=== PATIENT | male | born 1965 | race African-American/Black ===

== ENCOUNTER 2018-04-02 15:48 | Inpatient (IN) | payer MEDICAID ==
[~2018-04-02] VITALS: Ht 175.3 cm; Wt 88.6 kg
--- NOTE | ~2018-04-02 | EC ---
PATIENT:ABELARDO PURDY DATE OF SERVICE: 04/02/18 SEX: M MEDICAL RECORD: [id number] DATE OF : 63 LOCATION:D.M2 D.212 AGE OF PATIENT: 53 ADMISSION DATE: 04/02/18 REFERRING PHYSICIAN: INTERPRETING PHYSICIAN: LUZ AVALOS MD ECHOCARDIOGRAM REPORT ECHO CHARGES 4 ECHO COMPLETE Date: 04/04/18 CLINICAL DIAGNOSIS: RECENT WY ECHOCARDIOGRAPHIC MEASUREMENTS (adult normal given) AC root (d.<3.7cm) 3.6 cm LV Septum d (<1.2 cm> 0.9 cm Valve Excursion 1.2 cm LV Septum (systole) 1.3 cm Left Atria (s.<4.0cm> 2.6 cm LVPW d(<1.2cm) 1.0 cm RV (d.<2.3cm) 2.0 cm LVPW (sytole) 1.1 cm LV diastole(<5.6CM) 5.3 cm MV E-F(>70mm/sec) cm LV systole 4.6 cm LVOT Diameter 1.9 cm MV exc.(>10mm) cm Est.ejection fraction (50-75%) % DOPPLER: LVIT cm/sec A 86 cm/sec E 44 cm/sec LA cm/sec RVSP 26.8 mmHg LVOT 104 cm/sec AOP1/2T m/s Asc. Ao 123 cm/sec RVOT 71 cm/sec RA cm/sec PA 92 cm/sec AV Gradient Peak 6.1 mmHg AV Mean 3.4 mmHg AV Area 2.8 cm MV Gradient Peak 3.6 mmHg MV Mean 1.6 mmHg MV Area cm COMMENTS: Batch Roller Operator: Tomeka LOZADA Coating Line Worker: 3 Dr. Gallardo TAPE# PACS Pericardial Effusion N DATE OF SERVICE: Adequate 2-D echo, color flow and spectral Doppler, and M-mode. No LVH. LV internal dimensions are normal. There is hypokinesis of the mid anterior wall down to the apex with true apical akinesis. Overall LV function is reduced at 35% to 40%. Aortic valve sclerosis without stenosis by Doppler interrogation. Left atrium is normal. Mitral valve shows no prolapse. Mild MR. Right-sided chambers are grossly normal. Trace TR. ECHOCARDIOGRAM REPORT [id number] ABELARDO PURDY TRANSINT:[id number] Voice Confirmation ID: [id number] DOCUMENT ID: [id number] LUZ AVALOS MD at 1546 CC: [id number] DICTATION DATE: 04/04/18 1359 HOUSETRAILER SERVICER: 04/04/18 1617 ADM IN [facility] [address] [id number]
--- NOTE | ~2018-04-02 | MORECARE ---
CASE MANAGEMENT DISCHARGE SUMMARY PATIENT: ABELARDO PURDY UNIT: [id number] ADM DATE: 04/02/18 AGE: 53 : 63 SEX: M ROOM/BED: D.2301 AUTHOR: STEPHENDOC PHYSICIAN: REFERRING PHYSICIAN: LUZ AVALOS MD DATE OF SERVICE: 04/04/18 Discharge Plan Patient Name: ABELARDO PURDY Facility: [facility]:[place] : 1965 Planned Disposition: Home Anticipated Discharge Date: Discharge Date: Expected LOS: Initial Reviewer: [email or web address] Initial Review Date: 04/04/2018 Generated: 04/04/18 4:28 pm DCP- Discharge Planning Updated by [email or web address]: Haley Hendricks on 04/04/18 2:[address] Patient Name: ABELARDO PURDY Admission Status: ER Accout number: [id number] Admission Date: 04-02-2018 : 1965 Admission Diagnosis: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 PATIENT DENIES ANY DISCHARGE NEEDS. FAMILY IN ROOM REQUESTED US TO HELP HIM GET ON DISABILITY. CM EXPLAINED THAT WE DIDN'T DO THAT. CM CALLED AND SPOKE WITH [employer] (GUTIERREZ). SHE STATED THAT I COULD GIVE HER PHONE NUMBER TO THE PATIENT AND WOULD ASSIST BY ANSWERING ANY QUESTIONS NEEDED. CM GAVE GUTIERREZ CONTACT NUMBER [phone] TO PATIENT. CM WILL CONTINUE TO FOLLOW AND ASSIST WITH DISCHARGE PLANNING / NEEDS. Clinical Analyst: Haley Hendricks DCPIA - Discharge Planning Initial Assessment Updated by [email or web address]: Haley Hendricks on 04/04/18 3:14 pm * Is the patient Alert and Oriented? Yes * How many steps to enter\exit or inside your home? 2-3 * PCP NO PCP * Pharmacy NO PHARMACY PLANS TO USE [facility] IN [place] * Preadmission Environment Home Alone * ADLs Independent * Equipment Cane * Other Equipment SHOWER CHAIR * List name and contact numbers for known caregivers / representatives who currently or will assist patient after discharge: [facility] [phone] * Additional services required to return to the preadmission environment? No * Can the patient safely return to the preadmission environment? Yes * Has this patient been hospitalized within the prior 30 days at any hospital? No Last DP export: 04/04/18 2:18 Patient Name: ABELARDO PURDY Page [id number] at 1528 All edits/amendments must be made on the electronic document DICTATION DATE: 04/04/181526 HAND PAINTER: HUMBERTO 04/04/181526 RPT#: [id number] DC DATE: STATUS: ADM IN [facility] [address] [place] [address] END OF REPORT
--- NOTE | ~2018-04-02 | MORECARE ---
CASE MANAGEMENT DISCHARGE SUMMARY PATIENT: ABELARDO PURDY UNIT: [id number] ADM DATE: 04/02/18 AGE: 53 : 63 SEX: M ROOM/BED: D.2301 AUTHOR: JIMENA MITCHELL PHYSICIAN: REFERRING PHYSICIAN: LUZ AVALOS MD DATE OF SERVICE: 04/04/18 Discharge Plan Patient Name: ABELARDO PURDY [facility] : 1965 Planned Disposition: Home Anticipated Discharge Date: Discharge Date: Expected LOS: Initial Reviewer: [email or web address] Initial Review Date: 04/04/2018 Generated: 04/04/18 4:18 pm DCPIA - Discharge Planning Initial Assessment Updated by [email or web address]: Haley Hendricks on 04/04/18 3:14 pm * Is the patient Alert and Oriented? Yes * How many steps to enter\exit or inside your home? 2-3 * PCP NO PCP * Pharmacy NO PHARMACY PLANS TO USE [facility] IN [place] * Preadmission Environment Home Alone * ADLs Independent * Equipment Cane * Other Equipment SHOWER CHAIR * List name and contact numbers for known caregivers / representatives who currently or will assist patient after discharge: [facility] [phone] * Additional services required to return to the preadmission environment? No * Can the patient safely return to the preadmission environment? Yes * Has this patient been hospitalized within the prior 30 days at any hospital? No Patient Name: ABELARDO PURDY Page [id number] at 1518 All edits/amendments must be made on the electronic document DICTATION DATE: 04/04/18 1517 BRIM STITCHER: HUMBERTO 04/04/18 1517 RPT#: [id number] DC DATE: STATUS: ADM IN [facility] [address] [place] [address] END OF REPORT
--- NOTE | ~2018-04-02 | OP ---
PATIENT NAME: ABELARDO PURDY MEDICAL RECORD: [id number] :63 LOCATION:D.M2 D.2121 ADMISSION DATE:04/02/18 SURGEON: LUZ AVALOS MD DATE OF OPERATION: 04/02/2018 PROCEDURE: Left heart catheterization, selective coronary angiography, plus aortography, left femoral artery approach. CATHETERS: A 5/4 left and right Mike, 5/4 pig. The procedure was well tolerated. PTCA to totally occluded LAD. FINDINGS: Left ventriculography in 30-degree HARGROVE view shows a marked hypokinesis from the mid anterior wall down to the anterior apex true apical region. Overall, LV function reduced, 20% to 25%. Aortic root: Aortic root injection was performed. This showed a normal size aortic root. No evidence of dissection. CORONARY ANATOMY: LEFT MAIN: Left main is free of disease. LAD: Fills to about its mid third and then has MAYO 1 flow distally. CIRCUMFLEX: Circumflex free of disease. RIGHT CORONARY ARTERY: Dominant artery free of disease. DESCRIPTION OF PROCEDURE: Using a JL4 guiding catheter, a Whisper wire was placed easily across the area of occlusion LAD. Multiple balloon inflations were placed up and down the vessel with a 2.5 and 3.0, 20 mm Tom Green balloon. This showed no wasting. Intraballoon injection contrast shows no evidence of dissection. The patient was given Integrilin IC nitroglycerin and IC Cardene. It was felt at this point, this is more of no reflow phenomena with a marked thrombus, particularly in view of symptomatic beginning approximately 2 days prior to admission. He is placed on Integrilin overnight. Hopefully, it will washout of residual thrombus, beta blockade, statin, HUGH inhibitor will be started in the near future. TRANSINT:[id number] Voice Confirmation ID: [id number] DOCUMENT ID: [id number] LUZ AVALOS MD at 1546 CC: [id number] DICTATION DATE: 04/02/181730 SECTIONIZER: 04/02/18 2337 ADM IN [facility] [address] [place] [address]
--- NOTE | ~2018-04-02 | HEMODYNAMI ---
PATIENT:ABELARDO PURDY MEDICAL RECORD: [id number] : 63 LOCATION:[facility] ADMISSION DATE: 04/02/18 Generatedon:04/02/201817:26 Patient name: ABELARDO PURDY Patient #: [id number] SSN: : 1965 Date of study: 04/02/2018 Page: Of Hemodynamic Procedure Report Patient Data Patient Demographics Procedure consent was obtained First Name: ABELARDO Gender: Male Last Name: GURWINDER : 1965 Patient #: [id number] Age: 53 year(s) Race: Black Additional ID: [id number] Contact details [address]: [address] [place] [address] State: [place] City: [place] Zip code: [address] Admission Admission Data Admission Date: 04/02/2018 Admission Time: 15:48 Procedure Procedure Types Cath Procedure Diagnostic Procedure LHC LHC w/Coronaries PCI Procedure PTCA PTCA Initial Procedure Description Procedure Date Procedure Date: 04/02/2018 Procedure Start Time: 16:08 Procedure End Time: 17:24 Procedure Staff Name Function Tigre Whitley MD Performing Physician Laura Olmstead RT Monitor Zak Norris RT Monitor Peyton Alcazar RT Scrub Martha Cueva RN Nurse Procedure Data Cath Procedure Fluoroscopy Diagnostic fluoroscopy Total fluoroscopy Time: 15 time: 15 min min Diagnostic fluoroscopy Total fluoroscopy dose: dose: 1749 mGy 1749 mGy Contrast Material Contrast Material Type Amount (ml) Isovue 300 185 Entry Location Entry Primary Successful Side Size Upsize Upsize Entry Closure Thornton ccessful Closure Location (Fr) 1 (Fr) 2 (Fr) Remarks Device Remarks Femoral Right 6 Fr Mechanical artery Short Compression Femoral Left 6 Fr Exoseal vein Short Femoral Right 6 Fr Exoseal artery Short Estimated blood loss: 10 ml Diagnostic catheters Device Type Used For End Catheter Placement MULTIPACK 3DRC 5Fr Procedure catheter MULTIPACK 3DRC 5Fr Procedure catheter MULTIPACK Pigtail 5 Fr Procedure catheter Procedure Complications No complications Procedure Medications Medication Administration Route Dosage Oxygen etCO2 Nasal cannula 2 l/min Heparin Flush Bag added to field 2 bags (1000units/500ml NS) 0.9% NaCl I.V. 100 ml/hr Fentanyl I.V. 100 mcg Versed I.V. 2 mg Versed I.V. 1 mg Fentanyl I.V. 100 mcg Versed I.V. 1 mg Fentanyl I.V. 50 mcg Lopressor I.V. 2.5 mg Heparin Bolus I.V. 5000 units Integrilin (Bolus I.V. 7.9 ml 2mg/ml) Nitroglycerin IC/IA I.C. 150 mcg Cardene I.C. 250 mcg Integrilin Drip I.V. drip 7 ml/hr (75mg/100ml) Plavix P.O. 600 mg Fentanyl I.V. 25 mcg Hemodynamics Rest Heart Rate: 86 (bpm) Pressure Samples Time Site Value (mmHg) Purpose Heart Use Rate(bpm) 16:33 LV 167/30,39 Snapshot 116 16:34 AO 165/102(130) Pullback 112 16:34 LV 168/-2,40 Pullback 112 16:48 AO 97/70(83) Snapshot 84 Gradients Valve Time Site 1 Site 2 Mean SEP/DFP Peak To Heart Use (mmHg) (sec/min) Peak Rate (mmHg) (bpm) Aortic 16:34 LV AO 3 112 168/-2,40 165/102(130) Calculations Valve P-P Mean Valve Index Valve Source Name Gradient Area Flow (cm2) Aortic 3 3 Snapshots Pre Cath Intra NCS Post Cath Vital Signs Time Heart Resp SPO2 etCO2 NIBP (mmHg) Rhythm Pain Sedation Rate (ipm) (%) (mmHg) Status Level (bpm) 16:05:06 84 24 98 25.4 147/109(134) NSR 0 (11) 10(A) , No pain 16:09:16 91 16 96 29.7 138/100(123) NSR 0 (11) 10(A) , No pain 16:13:28 89 12 97 11.9 135/95(127) NSR 0 (11) 10(A) , No pain 16:17:40 97 19 95 34.4 143/103(114) NSR 0 (11) 10(A) , No pain 16:21:48 94 11 95 13.4 143/100(126) NSR 0 (11) 10(A) , No pain 16:26:00 109 26 96 16 142/114(126) NSR 0 (11) 10(A) , No pain 16:30:14 105 15 95 30 152/102(127) NSR 0 (11) 9(A) , No pain 16:35:37 107 14 97 32 165/98(142) NSR 0 (11) 9(A) , No pain 16:39:55 90 13 96 42.6 151/93(110) NSR 0 (11) 9(A) , No pain 16:44:07 86 14 96 33 116/78(98) NSR 0 (11) 9(A) , No pain 16:48:17 84 13 97 29 117/76(99) NSR 0 (11) 9(A) , No pain 16:52:25 87 13 96 29.9 124/81(106) NSR 0 (11) 9(A) , No pain 16:56:33 92 12 97 26.1 128/90(112) NSR 0 (11) 9(A) , No pain 17:00:43 89 13 97 26.1 137/89(113) NSR 0 (11) 9(A) , No pain 17:04:58 88 14 96 27.6 134/85(106) NSR 0 (11) 9(A) , No pain 17:09:10 92 13 95 33.6 122/83(96) NSR 0 (11) 9(A) , No pain 17:13:18 90 14 96 32.8 125/86(111) NSR 0 (11) 10(A) , No pain 17:17:39 104 14 96 20.2 106/76(83) NSR 0 (11) 10(A) , No pain 17:22:27 90 14 31.4 142/96(119) NSR 0 (11) 10(A) , No pain Medications Time Medication Route Dose Verified Delivered Reason Notes Effectiveness by by 16:01:15 Oxygen etCO2 2 Tigre Martha Per physician Nasal l/min [facility] Rangel Cueva cannula RN 16:01:24 Heparin Flush added 2 Tigre Martha used for Bag to bags [facility] Rangel Cueva procedure (1000units/500ml field RN NS) 16:01:33 0.9% NaCl I.V. 100 Tigre Adanyla Per physician ml/hr [facility] Rangel Cueva MD, RN 16:06:50 Fentanyl I.V. 100 Tigre Thomas for sedation mcg [facility] Rangel Cueva MD, RN 16:06:57 Versed I.V. 2 mg Tigre De La Rosaa for sedation [facility] Rangel Cueva MD, RN 16:21:36 Versed I.V. 1 mg Tigre Adanyla for sedation [facility] Rangel Cueva MD, RN 16:21:41 Fentanyl I.V. 100 Tigre Thomas for sedation mcg [facility] Rangel Cueva MD, RN 16:29:16 Versed I.V. 1 mg Tigre De La Rosaa for sedation [facility] Rangel Cueva MD, RN 16:29:22 Fentanyl I.V. 50 Tigre Thomas for sedation mcg [facility] Rangel Cueva MD, RN 16:37:23 Lopressor I.V. 2.5 Tigre Thomas for mg [facility] Rangel Cueva hypertension MD LUO 16:39:08 Heparin Bolus I.V. 5000 Tigre Thomas for verif ied units [facility] anticoagulation with Dr. MD LUO [place] 16:39:28 Integrilin I.V. 7.9 Tigre Thomas for waste d (Bolus 2mg/ml) ml [facility] Rangel Cueva anticoagulation 2.1mL MD LUO 16:39:51 Fentanyl I.V. 25 Tigre Thomas for sedation mcg [facility] Rangel Cueva MD, RN 16:52:08 Nitroglycerin I.C. 150 Tigre Landeros for IC/IA mcg [place] [facility] Multani vasodilation MD CLARK 17:08:32 Cardene I.C. 250 Tigre Landeros for mcg [place] [facility] Multani vasodilation MD CLARK 17:08:58 Integrilin Drip I.V. 7 Tigre Thomas for (75mg/100ml) drip ml/hr AngiRangel Cueva anticoagulation MD LUO 17:17:00 Plavix P.O. 600 Tigre [address] for mg [facility] Rangel Cueva antiplatelet MD LUO therapy Procedure Log Time Note 15:45:22 Martha Cueva RN sent for patient. Start room use. 15:52:49 Informed consent obtained and on chart 15:52:52 Diagnostic Cath Status : Elective 15:53:23 Time tracking: Regular hours (M-F 7:00 - 5:00) 15:53:28 Plan of Care:Hemodynamics will remain stable., Cardiac rhythm will remain stable., Comfort level will be maintained., Respiratory function will remain adequate., Patient/ family verbilizes understanding of procedure., Procedure tolerated without complication., Recovers from procedure without complications.. 16:00:08 Patient received from ED to CCL 1 Alert and oriented. Tansferred to table in Supine position. 16:00:09 Warm blankets applied, and rigoberto hugger turned on for patient comfort. 16:00:10 Correct patient and procedure confirmed by team. 16:00:10 ECG and BP/O2 sat monitors applied to patient. 16:01:15 Oxygen 2 l/min etCO2 Nasal cannula was administered by Martha Cueva RN; Per physician; 16:01:24 Heparin Flush Bag (1000units/500ml NS) 2 bags added to field was administered by Martha Cueva RN; used for procedure; 16:01:33 0.9% NaCl 100 ml/hr I.V. was administered by Martha Cueva RN; Per physician; 16:03:46 Vital chart was started 16:04:03 Baseline sample Acquired. 16:04:10 Rhythm: w/ ST elevation 16:04:12 Full Disclosure recording started 16:04:15 H&P Date Dictated: 04/02/2018 Emergent; H&P N/A. 16:04:16 Pre-procedure instructions explained to patient. 16:04:16 Pre-op teaching completed and patient verbalized understanding. 16:04:19 Family in patients room. 16:04:21 Patient NPO since Midnight. 16:04:26 Is the patient allergic to Iodine/contrast media? No. 16:04:33 Is patient on blood thinner?No 16:04:35 Patient diabetic? No. 16:04:38 Previous problem with sedation/anesthesia? No ? 16:04:40 Snore? No 16:04:41 Sleep apnea? No 16:04:42 Deviated septum? No 16:04:43 Opens mouth fully? Yes 16:04:44 Sticks out tongue? Yes 16:04:46 Airway obstruction? No ? 16:04:49 Dentures? No ? 16:05:16 Pre procedure: right dorsailis pedis pulse 1+ Palpable, but thready & weak; easily obliterated 16:05:20 Patient pain scale 7/10 physician notified.. 16:05:53 IV patent on arrival in left forearm with 0.9% NaCl at [facility]. 16:05:56 Lab results completed and on chart. 16:05:58 Right groin area was prepped with chlora-prep and draped in sterile fashion 16:06:00 Alarms reviewed by R. N. 16:06:00 Sharps counted by scrub and verified by RCalixtoN. 16:06:01 --------ALL STOP TIME OUT------ 16:06:02 Final Timeout: patient, procedure, and site verified with staff and physician. All members of the team are in agreement. 16:06:04 Right groin site verified by team. 16:06:08 Physical assessment completed. ASA score P 3 - A patient with severe systemic disease as per Tigre Whitley MD. 16:06:11 Sedation plan: IV Moderate Sedation Medication:Versed, Fentanyl 16:06:50 Fentanyl 100 mcg I.V. was administered by Martha Cueva RN; for sedation; 16:06:57 Versed 2 mg I.V. was administered by Martha Cueva RN; for sedation; 16:06:58 Use device set Femoral Dx 16:07:13 ACIST Syringe (78796) opened to sterile field. 16:07:14 Bag Decanter (2002S) opened to sterile field. 16:07:14 Medline Cath Pack ([id number]) opened to sterile field. 16:07:15 ACIST Hand Control (01738) opened to sterile field. 16:07:16 ACIST Manifold (17227) opened to sterile field. 16:07:18 Tegaderm 4 x 4 (1626W) opened to sterile field. 16:07:20 DIAGNOSTIC WIRE .035 260cm J wire (307747) opened to sterile field. 16:07:22 DIAGNOSTIC Multipack 5Fr catheter set (GW8667) opened to sterile field. 16:07:31 SHEATH 6FR [place] (IMH073) opened to sterile field. 16:07:32 SHEATH 6FR [place] (KAU120) opened to sterile field. 16:07:59 Procedure started. 16:08:02 Local anesthetic to right femoral artery with Lidocaine 2% by Tigre Whitley MD.INITIAL ACCESS ONLY 16:08:46 Zero performed for pressure channel P1 16:09:33 A 6 Fr Short sheath was inserted into the Right Femoral artery 16:10:35 GLIDE WIRE Super Stiff Angled 260cm (EJ9098) opened to sterile field. 16:10:55 A MULTIPACK 3DRC 5Fr catheter was advanced over the wire and used for Procedure. 16:14:16 Unable to advance catheter, catheter removed. Moving to left groin. 16:14:31 Left groin prepped and draped. 16:15:04 SHEATH 6FR [place] (DXA565) opened to sterile field. 16:15:18 Local anesthetic to left femerol artery with Lidocaine 2% by Tigre Whitley MD.ADDITIONAL ACCESS 16:15:30 A 6 Fr Short sheath was inserted into the Left Femoral vein 16:21:36 Versed 1 mg I.V. was administered by Martha Cueva RN; for sedation; 16:21:41 Fentanyl 100 mcg I.V. was administered by Martha Cueva RN; for sedation; 16:24:19 MICROPUNCTURE 4FR Cook (I75142) opened to sterile field. 16:28:32 Access obtained with 4Fr micropunture. 16:28:36 A 6 Fr Short sheath was inserted into the Right Femoral artery 16:29:16 Versed 1 mg I.V. was administered by Martha Cueva RN; for sedation; 16:29:22 Fentanyl 50 mcg I.V. was administered by Martha Cueva RN; for sedation; 16:30:27 A MULTIPACK 3DRC 5Fr catheter was advanced over the wire and used for Procedure. 16:32:04 RCA angiography performed. 16:32:19 Catheter exchanged over wire. 16:33:44 A MULTIPACK Pigtail 5 Fr catheter was advanced over the wire and used for Procedure. 16:33:55 LV angiography performed. 16:34:15 LV gram done using HARGROVE 16:34:21 EF : 30 % 16:34:23 LV hemodynamics recorded. 16:34:34 Injector settings: Ml/sec: 10, Volume: 20, 16:34:38 Aortic Root visualized 16:34:41 Injector settings: Ml/sec: 15, Volume: 30, 16:35:51 Catheter exchanged over wire. 16:35:53 INFLATOR Merit BasixCompak (RW5751) opened to sterile field. 16:35:54 WHISPER 300cm guide wire ([id number]) opened to sterile field. 16:36:41 GUIDE 6FR JL 4.0 catheter (WN7ES48) opened to sterile field. 16:36:57 6 Fr JL 4 guide catheter was inserted over the wire 16:37:19 LCA angiography performed. 16:37:23 Lopressor 2.5 mg I.V. was administered by Martha Cueva RN; for hypertension; 16:39:08 Heparin Bolus 5000 units I.V. was administered by Martha Cueva RN; for anticoagulation; verified with Dr. Gallardo 16:39:28 Integrilin (Bolus 2mg/ml) 7.9 ml I.V. was administered by Martha Cueva RN; for anticoagulation; wasted 2.1mL 16:39:45 WHISPER wire advanced. 16:39:51 Fentanyl 25 mcg I.V. was administered by Martha Cueva RN; for sedation; 16:41:05 Wire advanced across lesion. 16:42:19 Inflate balloon Inflation number: 1 A EMERGE OTW 3.0 x 15 balloon ([id number]) was prepped and advanced across the Dist LAD, then inflated to 10 MAHI for 0:30 (min:sec). 16:43:29 Multiple inflations made at 10 Atms. 16:44:52 Balloon removed over the wire. 16:46:17 Inflate balloon Inflation number: 2 A EMERGE OTW 2.5 x 20 balloon ([id number]) was prepped and advanced across the Dist LAD, then inflated to 8 MAHI for 0:30 (min:sec). 16:46:56 Multiple inflations made at 8 Atms. 16:49:22 Inflation number: 3 The EMERGE OTW 2.5 x 20 balloon ([id number]) was reinflated across the Dist LAD, to 12 MAHI for 0:30 (min:sec). 16:50:27 Multiple inflations made at 12 Atms. 16:52:08 Nitroglycerin IC/IA 150 mcg I.C. was administered by Tigre Whitley MD; for vasodilation; 17:03:02 Multiple inflations made at 12 Atms. 17:07:25 Balloon removed over the wire. 17:07:26 Wire removed. 17:07:33 Guide catheter removed. 17:08:10 EXOSEAL 6Fr (EX600) opened to sterile field. 17:08:16 EXOSEAL 6Fr (EX600) opened to sterile field. 17:08:28 Sheath removed intact; hemostasis achieved with Exoseal to the Left Femoral vein. 17:08:32 Cardene 250 mcg I.C. was administered by Tigre Whitley MD; for vasodilation; 17:08:58 Integrilin Drip (75mg/100ml) 7 ml/hr I.V. drip was administered by Martha Cueva RN; for anticoagulation; 17:09:00 Sheath removed intact; hemostasis achieved with Exoseal to the Right Femoral artery. 17:09:08 Procedure ended.(Physican Out) 17:10:00 Fluoroscopy time 15.00 minutes. 17:10:06 Flurop Dose total: 1749 17:10:06 Fluoroscopy dose: 1749 mGy 17:10:10 Contrast amount:Isovue 300 185ml. 17:10:12 Sharps counted by scrub and verified by R.N. 17:10:14 Insertion/operative site no bleeding no hematoma. 17:10:19 Post-op/insertion site Left Femoral artery dressed using a 4 x 4 and Tegaderm. 17:10:36 FEMSTOP Gold (E49287) opened to sterile field. 17:11:24 Sheath removed intact; hemostasis achieved with Mechanical Compression to the Right Femoral artery. 17:11:33 Femstop placed over the right femoral artery at 150 mmHg. Hemostasis achieved. 17:11:46 Post-procedure physical assessment completed. ASA score P 3 - A patient with severe systemic disease as per Tigre Whitley MD. 17:11:49 Post procedure rhythm: unchanged. 17:11:52 Estimated blood loss: 10 ml 17:11:54 Post procedure instruction explained to patient.Patient verbalizes understanding. 17:11:55 Patient needs reinforcement of post procedure teaching. 17:12:30 Procedure type changed to Cath procedure, Diagnostic procedure, LHC, LHC w/Coronaries, PCI procedure, PTCA, PTCA Initial 17:12:38 Procedure Complication : No complications 17:17:00 Plavix 600 mg P.O. was administered by Martha Cueva RN; for antiplatelet therapy; 17:20:40 Procedure and supply charges have been captured, reviewed, submitted and are correct. 17:23:47 Vital chart was stopped 17:23:47 See physician's report for complete and final results. 17:24:07 Report given to ICU. 17:24:10 Patient transfered to ICU with Bed. 17:24:13 Procedure ended. 17:24:13 Full Disclosure recording stopped 17:24:17 End room use (Document Last) Intervention Summary Intervention Notes Time ActionType Lesion and Equipment Action# Pressure Duration Attributes Used 16:42:19 Inflate Dist LAD EMERGE OTW 1 10 00:30 balloon 3.0 x 15 balloon ([id number]) 16:46:17 Inflate Dist LAD EMERGE OTW 2 8 00:30 balloon 2.5 x 20 balloon ([id number]) 16:49:22 Reinflate Dist LAD EMERGE OTW 3 12 00:30 balloon 2.5 x 20 balloon ([id number]) Device Usage Item Name Manufacture Quantity Catalog Number Hospital Part Current [facility] Lot# / Charge Number Stock Stock Serial# Code ACIST Syringe Acist 1 47438 506655 776423 487023 20 (26921) Medical Systems Inc Bag Decanter Microtek 1 2001S 406679 07884 539611 5 (2001S) Medical Inc. Medline Cath Medline 1 [id number] 625213 05897 067600 5 Pack ([id number]) ACIST Hand Acist 1 42697 883536 108559 257263 5 Control Medical (59559) Systems Inc ACIST Acist 1 94700 649707 666244 454422 5 Manifold Medical (23023) Systems Inc Tegaderm 4 x 3M 1 1626W 991733 255960 398186 5 4 (1626W) DIAGNOSTIC [facility] Jelani 1 932690 700775 987042 777660 30 WIRE .035 260cm J wire (465606) DIAGNOSTIC Cardinal 1 UU9623 062272 42062 718109 30 Multipack 5Fr Health catheter set (UF8334) SHEATH 6FR Terumo 3 ETQ847 842290 327589 977516 40 [place] (WWP668) GLIDE WIRE Terumo 1 LW7405 188067 359256 365293 5 Super Stiff Angled 260cm (JB2829) MULTIPACK Cardinal 1 494447 5 3DRC 5Fr Health catheter MICROPUNCTURE sportif225 [facility] 1 I70478 938066 776595 726373 5 4FR Cook (H61227) MULTIPACK Cardinal 1 847709 5 Pigtail 5 Fr Health catheter INFLATOR [facility] 1 RA3150 072144 209808 036498 15 [facility] BasixCompak (WR5595) WHISPER 300cm Tamayo 1 [id number] 149874 162997 471711 5 guide wire Vascular (7429040MZ) GUIDE 6FR JL Medtronic 1 GQ6JY54 290985 89534 436621 1 4.0 catheter (XQ1DM16) EMERGE OTW [place] 1 [id number] 362446 705066 545198 5 [id number] 3.0 x 15 Scientific balloon ([id number]) EMERGE OTW [place] 1 [id number] 755301 275047 350228 5 [id number] 2.5 x 20 Scientific balloon ([id number]) EXOSEAL 6Fr Cardinal 2 EX600 998219 340236 949670 10 (EX600) [facility] St Jelani 1 N11168 829760 678806 242922 5 (Y47418) Signature Audit Byron Stage Time Signature Unsigned Intra-Procedure 04/02/2018 Zak Norris 5:26:20 PM RT(R) Signatures Monitor : Laura Olmstead RT Signature : Date : Time : Monitor : Zak Norris RT Signature : Date : Time : [address] [address]
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
[2018-04-02 17:50] VITALS: BP 145/85; BMI 26.9
[2018-04-02 19:00] VITALS: BP 115/94
[2018-04-02 20:00] VITALS: BP 117/89
[2018-04-02 21:00] VITALS: BP 124/98
[2018-04-02 22:00] VITALS: BP 133/90
[2018-04-02 23:00] VITALS: BP 121/90
[2018-04-03] VITALS (24 sets, daily range): BP systolic 97–133; BP diastolic 63–93; Ht 175.3 cm; Wt 88.6 kg
[2018-04-03 04:11] LABS: BASOPHILS 0.1 % (0-2); EOSINOPHILS 0 % (0-7); HEMOGLOBIN 14.4 g/dL (13.5-17.5); IMMATURE GRANULOCYTES 0.4 % (0-5); LYMPHOCYTES 5.3 % (15-50); MCH 22.4 pg (26.0-34.0); MCHC 32.7 g/dL (31.0-37.0); MCV 68.5 fL (80.0-100.0); MONOCYTES 5.9 % (2-11); NEUTROPHILS 88.3 % (40-80); PLATELET COUNT 160 10x3/uL (130-400); RBC 6.42 10x6/uL (4.20-6.10); RDW 17.9 % (11.5-14.5); WBC 18.3 10x3/uL (4.8-10.8)
[2018-04-03 06:48] LABS: ALBUMIN 3.3 g/dL (3.4-5.0); ANION GAP 21.7 mmol/L (8-16); BILIRUBIN - TOTAL 0.45 mg/dL (0.2-1.3); CALCIUM 9.1 mg/dL (8.5-10.1); CARBON DIOXIDE 20.6 mmol/L (21.0-32.0); CREATININE - SERUM 1.7 mg/dL (0.6-1.3); PROTEIN - SERUM 7.4 g/dL (6.4-8.2)
[2018-04-03 07:16] LABS: POTASSIUM - SERUM 6.3 mmol/L (3.5-5.1)
[2018-04-03 09:27] LABS: MAGNESIUM - SERUM 2.4 mg/dL (1.8-2.4); PHOSPHOROUS 6.8 mg/dL (2.5-4.9)
[2018-04-03 16:12] LABS: ALBUMIN 3.2 g/dL (3.4-5.0); ALKALINE PHOSPHATASE 98 U/L (46-116); ALT (SGPT) 71 U/L (10-68); BILIRUBIN - TOTAL 0.44 mg/dL (0.2-1.3); CALC OSMOLALITY 276 mosm/kg (275-300); CALCIUM 9.2 mg/dL (8.5-10.1); CARBON DIOXIDE 23.6 mmol/L (21.0-32.0); CHLORIDE - SERUM 99 mmol/L (98-107); CREATININE - SERUM 0.8 mg/dL (0.6-1.3); GLUCOSE 164 mg/dL (74-106); POTASSIUM - SERUM 5.2 mmol/L (3.5-5.1); PROTEIN - SERUM 6.8 g/dL (6.4-8.2); SODIUM 135 mmol/L (136-145); UREA NITROGEN 20 mg/dL (7-18); eGFR NON AFRICAN AMERICAN > 90 mL/min (90-120)
[2018-04-03 19:01] LABS: APPEARANCE CLEAR (CLEAR); BILIRUBIN NEGATIVE (NEGATIVE); COLOR YELLOW (YELLOW); GLUCOSE 1000 mg/dL (NEGATIVE); KETONE SMALL mg/dL (NEGATIVE); NITRITE NEGATIVE (NEGATIVE); PROTEIN NEGATIVE (NEGATIVE); SPECIFIC GRAVITY 1.015 (1.005-1.020); UROBILINOGEN NORMAL (NORMAL)
[2018-04-03 19:04] LABS: RED CELLS - URINE 0-5 /hpf (0-5)
[2018-04-03 19:05] LABS: BACTERIA FEW /hpf (NONE SEEN); CREATININE - URINE 86.4 mg/dL (30-125); GRANULAR CAST 0-5 /lpf (NONE SEEN); HYALINE CAST 0-5 /lpf (NONE SEEN); PRO/CRE RATIO URINE 0.3 mg/g; PROTEIN - URINE 25.7 mg/dL (0.0-11.9)
[2018-04-03 21:34] LABS: ALKALINE PHOSPHATASE 85 U/L (46-116); ALT (SGPT) 67 U/L (10-68); BILIRUBIN - TOTAL 0.46 mg/dL (0.2-1.3); CALC OSMOLALITY 270 mosm/kg (275-300); CALCIUM 8.8 mg/dL (8.5-10.1); CARBON DIOXIDE 27.4 mmol/L (21.0-32.0); CHLORIDE - SERUM 99 mmol/L (98-107); CREATININE - SERUM 0.9 mg/dL (0.6-1.3); GLUCOSE 91 mg/dL (74-106); MAGNESIUM - SERUM 2.1 mg/dL (1.8-2.4); POTASSIUM - SERUM 4.4 mmol/L (3.5-5.1); PROTEIN - SERUM 6.9 g/dL (6.4-8.2); SODIUM 135 mmol/L (136-145); UREA NITROGEN 16 mg/dL (7-18); eGFR NON AFRICAN AMERICAN > 90 mL/min (90-120)
[2018-04-04] VITALS (24 sets, daily range): BP systolic 86–120; BP diastolic 52–84
[2018-04-04 03:15] LABS: BASOPHILS 0 % (0-2); EOSINOPHILS 0.1 % (0-7); HEMATOCRIT 35.8 % (42.0-54.0); HEMOGLOBIN 12.2 g/dL (13.5-17.5); IMMATURE GRANULOCYTES 0.3 % (0-5); LYMPHOCYTES 13.1 % (15-50); MCH 22.1 pg (26.0-34.0); MCHC 34.1 g/dL (31.0-37.0); MONOCYTES 10.2 % (2-11); NEUTROPHILS 76.3 % (40-80); PLATELET COUNT 124 10x3/uL (130-400); RBC 5.51 10x6/uL (4.20-6.10); RDW 16.3 % (11.5-14.5); WBC 14.4 10x3/uL (4.8-10.8)
[2018-04-04 03:17] LABS: INR 1.14 (0.85-1.17); PROTIME 14.1 SECONDS (11.6-15.0)
[2018-04-04 03:19] LABS: APTT 127.6 SECONDS (22.8-39.4)
[2018-04-04 03:34] LABS: ALBUMIN 2.8 g/dL (3.4-5.0); ALKALINE PHOSPHATASE 78 U/L (46-116); ALT (SGPT) 63 U/L (10-68); BILIRUBIN - TOTAL 0.48 mg/dL (0.2-1.3); CALC OSMOLALITY 270 mosm/kg (275-300); CALCIUM 8.4 mg/dL (8.5-10.1); CARBON DIOXIDE 27.6 mmol/L (21.0-32.0); CHLORIDE - SERUM 101 mmol/L (98-107); CREATININE - SERUM 0.8 mg/dL (0.6-1.3); GLUCOSE 119 mg/dL (74-106); POTASSIUM - SERUM 3.9 mmol/L (3.5-5.1); PRO BNP 2388 pg/mL (0-125); PROTEIN - SERUM 6.7 g/dL (6.4-8.2); SODIUM 135 mmol/L (136-145); THYROID STIMULATING HORMONE 0.56 uIU/mL (0.36-3.74); UREA NITROGEN 12 mg/dL (7-18); eGFR NON AFRICAN AMERICAN > 90 mL/min (90-120)
[2018-04-05] VITALS (25 sets, daily range): BP systolic 83–141; BP diastolic 43–88
[2018-04-05 03:23] LABS: BASOPHILS 0.1 % (0-2); EOSINOPHILS 0.2 % (0-7); HEMATOCRIT 34.7 % (42.0-54.0); HEMOGLOBIN 11.5 g/dL (13.5-17.5); IMMATURE GRANULOCYTES 0.2 % (0-5); LYMPHOCYTES 18.2 % (15-50); MCH 21.9 pg (26.0-34.0); MCHC 33.1 g/dL (31.0-37.0); MONOCYTES 10.6 % (2-11); NEUTROPHILS 70.7 % (40-80); RBC 5.26 10x6/uL (4.20-6.10); RDW 16.2 % (11.5-14.5)
[2018-04-05 03:29] LABS: PLATELET COUNT 89 10x3/uL (130-400); WBC 10.2 10x3/uL (4.8-10.8)
[2018-04-05 04:06] LABS: ALBUMIN 2.3 g/dL (3.4-5.0); ALKALINE PHOSPHATASE 73 U/L (46-116); BILIRUBIN - TOTAL 0.42 mg/dL (0.2-1.3); CARBON DIOXIDE 23.1 mmol/L (21.0-32.0); CHLORIDE - SERUM 102 mmol/L (98-107); CKMB 14.3 U/L (0.0-3.6); CREATINE KINASE 679 UL (21-232); POTASSIUM - SERUM 3.5 mmol/L (3.5-5.1); PROTEIN - SERUM 6.1 g/dL (6.4-8.2); SODIUM 135 mmol/L (136-145); UREA NITROGEN 14 mg/dL (7-18); eGFR NON AFRICAN AMERICAN 83 mL/min (90-120)
[2018-04-05 04:07] LABS: ALT (SGPT) 41 U/L (10-68); CALC OSMOLALITY 280 mosm/kg (275-300); GLUCOSE 280 mg/dL (74-106); TROPONIN-I 27.575 ng/mL (0.000-0.060)
[2018-04-05 13:12] LABS: CKMB 8.4 U/L (0.0-3.6); CREATINE KINASE 471 UL (21-232)
[2018-04-05 18:50] LABS: CKMB 5.9 U/L (0.0-3.6); CREATINE KINASE 382 UL (21-232)
[2018-04-05 18:51] LABS: TROPONIN-I 18.321 ng/mL (0.000-0.060)
[2018-04-05 23:46] LABS: CKMB 5.2 U/L (0.0-3.6); CREATINE KINASE 347 UL (21-232)
[2018-04-06] VITALS (26 sets, daily range): BP systolic 89–141; BP diastolic 59–84
[2018-04-06 04:40] LABS: BASOPHILS 0.1 % (0-2); EOSINOPHILS 0.7 % (0-7); HEMATOCRIT 30.3 % (42.0-54.0); HEMOGLOBIN 9.8 g/dL (13.5-17.5); IMMATURE GRANULOCYTES 0.2 % (0-5); LYMPHOCYTES 26.8 % (15-50); MCH 21.5 pg (26.0-34.0); MCHC 32.3 g/dL (31.0-37.0); MCV 66.6 fL (80.0-100.0); MONOCYTES 10.6 % (2-11); NEUTROPHILS 61.6 % (40-80); PLATELET COUNT 106 10x3/uL (130-400); RBC 4.55 10x6/uL (4.20-6.10); RDW 16.7 % (11.5-14.5)
[2018-04-06 05:02] LABS: ALBUMIN 1.9 g/dL (3.4-5.0); ALKALINE PHOSPHATASE 65 U/L (46-116); ALT (SGPT) 37 U/L (10-68); BILIRUBIN - TOTAL 0.32 mg/dL (0.2-1.3); CALCIUM 7.8 mg/dL (8.5-10.1); CARBON DIOXIDE 28.3 mmol/L (21.0-32.0); CHLORIDE - SERUM 106 mmol/L (98-107); CREATININE - SERUM 0.8 mg/dL (0.6-1.3); POTASSIUM - SERUM 3.6 mmol/L (3.5-5.1); PROTEIN - SERUM 5.5 g/dL (6.4-8.2); SODIUM 140 mmol/L (136-145); eGFR NON AFRICAN AMERICAN > 90 mL/min (90-120)
[2018-04-06 05:04] LABS: CALC OSMOLALITY 284 mosm/kg (275-300); GLUCOSE 219 mg/dL (74-106); UREA NITROGEN 9 mg/dL (7-18)
[2018-04-07] VITALS (19 sets, daily range): BP systolic 75–145; BP diastolic 50–90
[2018-04-07 04:02] LABS: BASOPHILS 0 % (0-2); EOSINOPHILS 0 % (0-7); HEMOGLOBIN 10.1 g/dL (13.5-17.5); IMMATURE GRANULOCYTES 0.3 % (0-5); LYMPHOCYTES 9.2 % (15-50); MCH 21.6 pg (26.0-34.0); MCHC 32.6 g/dL (31.0-37.0); MCV 66.4 fL (80.0-100.0); MONOCYTES 7.7 % (2-11); NEUTROPHILS 82.8 % (40-80); RBC 4.67 10x6/uL (4.20-6.10); RDW 16.6 % (11.5-14.5)
[2018-04-07 04:09] LABS: PLATELET COUNT 151 10x3/uL (130-400); WBC 11.3 10x3/uL (4.8-10.8)
[2018-04-07 04:13] LABS: ALBUMIN 2.1 g/dL (3.4-5.0); ALKALINE PHOSPHATASE 75 U/L (46-116); ALT (SGPT) 32 U/L (10-68); BILIRUBIN - TOTAL 0.33 mg/dL (0.2-1.3); CALCIUM 8.2 mg/dL (8.5-10.1); CARBON DIOXIDE 28.2 mmol/L (21.0-32.0); CHLORIDE - SERUM 102 mmol/L (98-107); CREATININE - SERUM 0.9 mg/dL (0.6-1.3); SODIUM 136 mmol/L (136-145); eGFR NON AFRICAN AMERICAN > 90 mL/min (90-120)
[2018-04-07 04:14] LABS: CALC OSMOLALITY 281 mosm/kg (275-300); GLUCOSE 275 mg/dL (74-106); POTASSIUM - SERUM 4.9 mmol/L (3.5-5.1); UREA NITROGEN 13 mg/dL (7-18)
[2018-04-07 12:47] LABS: % SATURATION 27 % (15-55); IRON 46 ug/dl (35-150); TOTAL IRON BIND CAPACITY 169 ug/dl (260-445); UNSAT IRON BIND CAPACITY 123 ug/dl (150-375)
[2018-04-08] VITALS: BP 125/71
[2018-04-08 04:00] VITALS: BP 134/93
[2018-04-08 04:46] LABS: BASOPHILS 0 % (0-2); EOSINOPHILS 0.1 % (0-7); HEMOGLOBIN 9.9 g/dL (13.5-17.5); IMMATURE GRANULOCYTES 0.6 % (0-5); LYMPHOCYTES 13.9 % (15-50); MCH 21.8 pg (26.0-34.0); MCV 65.9 fL (80.0-100.0); MEAN PLATELET VOLUME 10.7 fL (7.4-10.4); MONOCYTES 9.2 % (2-11); NEUTROPHILS 76.2 % (40-80); RBC 4.55 10x6/uL (4.20-6.10); RDW 16.6 % (11.5-14.5); WBC 12.3 10x3/uL (4.8-10.8)
[2018-04-08 04:47] LABS: ALBUMIN 2.2 g/dL (3.4-5.0); ALKALINE PHOSPHATASE 65 U/L (46-116); ALT (SGPT) 28 U/L (10-68); BILIRUBIN - TOTAL 0.32 mg/dL (0.2-1.3); CALC OSMOLALITY 286 mosm/kg (275-300); CALCIUM 8.3 mg/dL (8.5-10.1); CARBON DIOXIDE 28.4 mmol/L (21.0-32.0); CHLORIDE - SERUM 103 mmol/L (98-107); GLUCOSE 228 mg/dL (74-106); PLATELET COUNT 250 10x3/uL (130-400); POTASSIUM - SERUM 4.5 mmol/L (3.5-5.1); SODIUM 140 mmol/L (136-145); UREA NITROGEN 16 mg/dL (7-18); eGFR NON AFRICAN AMERICAN 83 mL/min (90-120)
[2018-04-08 08:21] LABS: FOLATE (FOLIC ACID) - SERUM 10.1 ng/mL (>3.0)
[2018-04-08 08:30] VITALS: BP 119/68
[2018-04-08 12:08] VITALS: BP 118/70
[2018-04-08 16:08] VITALS: BP 130/80
[2018-04-08 21:02] VITALS: BP 119/69
[2018-04-09 01:14] VITALS: BP 119/74
[2018-04-09 05:54] VITALS: BP 115/75
[2018-04-09 08:25] VITALS: BP 119/74
[2018-04-09] MEDS ORDERED: HUMULIN R100 U/ML SC (09:39)
[2018-04-09] MEDS ORDERED: Lantus Solostar PEN SC (09:39)
[2018-04-09] MEDS ORDERED: LEVAQUIN750 MG PO (09:46)
[2018-04-09 12:15] VITALS: BP 108/74
[2018-04-09] MEDS ORDERED: PLAVIX75 MG PO (13:38)
[2018-04-09] MEDS ORDERED: LEXAPRO10 MG PO (13:39)
[2018-04-09] MEDS ORDERED: LIPITOR20 MG PO (13:40)
[2018-04-09] MEDS ORDERED: LISINOPRIL5 MG PO (13:41)
[2018-04-09] MEDS ORDERED: COLCRYS0.6 MG PO (13:42)
[2018-04-09] MEDS ORDERED: LOPRESSOR25 MG PO (13:43)
[2018-04-09] MEDS ORDERED: MEDROL DOSE PACK4 MG PO (13:44)
[2018-04-09] MEDS ORDERED: TORADOL10 MG PO (13:44)
[2018-04-09] MEDS ORDERED: ASPIRIN81 MG PO (13:45)
== END 2018-04-09 15:15 | disposition home or self-care (01) | DRG 250 ==
LOC: D.CATH 15:48 → D.ER 15:48 → EDSTATUS 16:04 → D.M2 17:37 → D.ICU 17:37 → D.M2 04-07 16:08
PROVIDERS: Family Medicine; Internal Medicine; Internal Medicine Interventional Cardiology; Internal Medicine Nephrology
PROC: B2151ZZ Fluoroscopy of Left Heart using Low Osmolar Contrast (ICD-10-PCS; 2018-04-02)
PROC: 4A023N7 Measurement of Cardiac Sampling and Pressure, Left Heart, Percutaneous Approach (ICD-10-PCS; 2018-04-02)
PROC: 02703ZZ Dilation of Coronary Artery, One Artery, Percutaneous Approach (ICD-10-PCS; principal; 2018-04-02 15:45)
PROC: B2111ZZ Fluoroscopy of Multiple Coronary Arteries using Low Osmolar Contrast (ICD-10-PCS; 2018-04-02 15:45)
DX: I21.09 ST elevation (STEMI) myocardial infarction involving other coronary artery of anterior wall (principal); E11.10 Type 2 diabetes mellitus with ketoacidosis without coma; N17.9 Acute kidney failure, unspecified; E87.1 Hypo-osmolality and hyponatremia; I24.1 Dressler's syndrome; F17.203 Nicotine dependence unspecified, with withdrawal; I25.10 Atherosclerotic heart disease of native coronary artery without angina pectoris; E87.5 Hyperkalemia; E11.65 Type 2 diabetes mellitus with hyperglycemia; I25.5 Ischemic cardiomyopathy; D50.9 Iron deficiency anemia, unspecified